=== PATIENT | male | born 1985 | race Hispanic/Latino ===

== ENCOUNTER 2021-09-26 09:57 | Inpatient (IN) | payer SELFPAY ==
[2021-09-26] MEDS ORDERED: METOPROLOL TARTRATE 5 MG/5 ML INJ IV ONE (10:04)
[2021-09-26] MEDS ORDERED: NA CHLORIDE 0.9% 500 ML ONE (10:26)
[2021-09-26] MEDS ORDERED: FENTANYL CITR 100 MCG/2 ML ONE (10:26)
[2021-09-26] MEDS ORDERED: propofoL 200 MG/20 ML VIAL IV ONE (10:26)
[2021-09-26 10:35] LABS: Absolute Lymphocytes (CBC) 1.7 K/uL (0.7-4.9); Basophils % 0.6 % (0-1.3); Hematocrit 43.1 % (39.6-49.0); Lymphocytes % 16.9 % (15.3-44.8); MPV 7.4 fL (7.6-11.3); RBC Red Blood Cell Count 4.77 M/uL (4.33-5.43)
[2021-09-26 10:39] LABS: Protime INR 1.09
[2021-09-26 10:58] LABS: ALT/SGPT 60 U/L (12-78); AST/SGOT 49 U/L (15-37); Alkaline Phosphatase 61 U/L (45-117); BUN Blood Urea Nitrogen 21 mg/dL (7-18); Bicarbonate 25 mmol/L (21-32); Bilirubin Direct 0.2 mg/dL (0-0.2); Bilirubin Total 0.7 mg/dL (0.2-1.0); Glucose Level 144 mg/dL (74-106); Magnesium 2.1 mg/dL (1.8-2.4); NT PRO-BNP 2738 pg/mL (<125); Potassium 3.7 mmol/L (3.5-5.1); Protein, Total 6.4 g/dL (6.4-8.2); Sodium Level 140 mmol/L (136-145); Troponin (Emerg Dept Use Only) < 0.02 ng/mL (0.0-0.045)
--- NOTE | 2021-09-26 11:11 | RAD REPORT ---
EXAM DESCRIPTION: RAD - Chest Single View - 09/26/2021 10:59 am CLINICAL HISTORY: CHEST PAIN COMPARISON: None TECHNIQUE: AP portable chest image was obtained 09/26/2021 10:59 am . FINDINGS: No acute lung parenchymal finding. Interstitial pattern is accentuated by body habitus aff ects, portable technique and shallow inspiration. Exam limitations also magnified heart size. Resusci tation paddle overlies the right-side of the chest. No measurable pleural effusion and no pneumothora x. No acute bony abnormality seen. No acute aortic findings suspected. IMPRESSION: Limited portable study without focal mass or consolidation. Heart, vasculature and lung markings are accentuated by exam limitations. Mild edema or interstitial infiltrate could be masked.
--- NOTE | 2021-09-26 12:00 | ER ---
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 Coronavirus screen: At this time, the client does not indicate any symptoms associated with coronavirus-19. Ebola Screen: No symptoms or risks identified at this time. Initial Sepsis Screen: Does the patient meet any 2 criteria? No. Patient's initial sepsis screen is negative. Does the patient have a suspected source of infection? No. Patient's initial sepsis screen is negative. Risk Assessment: Do you want to hurt yourself or someone else? Patient reports no desire to harm self or others. Onset of symptoms was September 26, 2021 at 09:00. Care prior to arrival: IV initiated. 20 GA, in the left antecubital area, Glucose check: 147. 10:04 Method Of Arrival: EMS: [facility] bp 10:04 Acuity: BRITTNEY 2 bp Triage Assessment: 10:04 General: Appears distressed, uncomfortable, obese, Behavior is cooperative, appropriate bp for age, anxious. Pain: Denies pain. EENT: No deficits noted. Neuro: Level of Consciousness is awake, alert, obeys commands, Oriented to Appropriate for age. Cardiovascular: Rhythm is atrial fibrillation with rapid ventricular response. Respiratory: No deficits noted. GI: No signs and/or symptoms were reported involving the gastrointestinal system. : No signs and/or symptoms were reported regarding the genitourinary system. Derm: Skin is diaphoretic. Musculoskeletal: No deficits noted. Historical: - Allergies: 10:04 No Known Allergies; bp - Home Meds: 10:04 None [Active]; bp - PMHx: 10:04 Hypertensive disorder; bp - Immunization history:: Adult Immunizations up to date. - Social history:: Smoking status: Patient denies any tobacco usage or history of. Screenin:05 Abuse screen: Denies threats or abuse. Denies injuries from another. Nutritional bp screening: No deficits noted. Tuberculosis screening: No symptoms or risk factors identified. Fall Risk None identified. Assessment: 10:05 General: SEE TRIAGE NOTE. bp 10:30 Reassessment: PT AGREED TO EMERGENCY CARDIOVERSION. PT PLACED ON 100%NRB, NIBP, SPO2 bp AND EKG MONITORING. PT GIVEN 100MG PROPOFOL AND 100MCG FENTANYL. SYNCHRONIZED CARDIOVERSION x2. 11:00 Reassessment: PT RETURNED TO BASELINE. REMAINS SR ON MONITOR. bp 12:03 Reassessment: ADMIT INITIATED. Cardiovascular: Rhythm is sinus rhythm. Respiratory: No bp deficits noted. GI: No signs and/or symptoms were reported involving the gastrointestinal system. : No signs and/or symptoms were reported regarding the genitourinary system. EENT: No deficits noted. Derm: No deficits noted. 13:00 Reassessment: No changes from previously documented assessment. Patient and/or family bp updated on plan of care and expected duration. Pain level reassessed. ADMIT IN PROCESS. Vital Signs: 10:04 BP 123 / 75; Pulse 193; Resp 20; Temp 97.9; Pulse Ox 97% ; bp 10:10 BP 123 / 75; Pulse 172; Resp 21; Pulse Ox 98% ; bp 10:24 BP 126 / 103; Pulse 136; Resp 22 S; iw 11:00 BP 92 / 61; Pulse 94; Resp 19; Pulse Ox 100% ; bp 12:00 BP 113 / 76; Pulse 91; Resp 15; Pulse Ox 100% ; bp 13:00 BP 91 / 48; Pulse 92; Resp 26; Pulse Ox 100% ; bp 14:00 BP 131 / 95; Pulse 85; Resp 17; Pulse Ox 100% ; bp ED Course: 10:03 Patient arrived in ED. cs9 10:04 Sal Monreal, RN is Primary Nurse. bp 10:05 Arm band placed on left wrist. bp 10:05 Patient has correct armband on for positive identification. Bed in low position. Call bp light in reach. Side rails up X2. 10:05 Inserted saline lock: 20 gauge in right forearm, using aseptic technique. Blood bp collected. 10:07 Triage completed. bp 10:24 Tk Mosqueda MD is Attending Physician. kdr 10:30 Assist provider with cardioversion (synchronized) with pads, for treatment of A fib Set bp up for procedure. Performed by Tk Mosqueda MD Monitored with satellite project site monitor, pulse ox, Post procedure rhythm is sinus rhythm. 10:59 XRAY Chest (1 view) In Process Unspecified. EDMS 11:59 Jules Vazquez MD is Hospitalizing Provider. kdr Administered Medications: 10:10 Drug: Lopressor (metoprolol) 5 mg Route: IVP; Site: right forearm; bp 10:15 Drug: Lopressor (metoprolol) 5 mg Route: IVP; Site: right forearm; bp 10:20 Drug: Lopressor (metoprolol) 5 mg Route: IVP; Site: right forearm; bp 12:02 Follow up: Response: No adverse reaction bp 10:30 Drug: Propofol 100 mg Route: IVP; Site: right forearm; bp 12:02 Follow up: Response: No adverse reaction bp 10:30 Drug: fentaNYL (PF) 100 mcg Route: IVP; Site: right forearm; bp 12:02 Follow up: Response: Pain is decreased bp 11:01 CANCELLED (Other Intervention Used): Propofol 40 mg IVP once bp 12:16 Drug: Eliquis (apixaban) 5 mg Route: PO; bp 13:34 Follow up: Response: No adverse reaction bp 12:16 Drug: Metoprolol TARTRATE 50 mg Route: PO; bp 13:34 Follow up: Response: No adverse reaction bp Outcome: 11:59 Decision to Hospitalize by Provider. kdr 15:02 Patient left the ED. bp Signatures: Dispatcher [employer] EDMS Tk Mosqueda MD MD kdr Opal Mayorga RN RN iw Sal Monreal RN RN Leeanne Guthrie cs9
--- NOTE | 2021-09-26 12:00 | EDPHYS ---
Physician Documentation [facility] Name: Dov Guallpa Age: 36 yrs Sex: Male : 1985 Arrival Date: 09/26/2021 Time: 10:03 Bed 3 Private MD: ED Physician Tk Mosqueda HPI: 09/26 11:59 This 36 yrs old Male presents to ER via EMS with complaints of Syncope. kdr 11:59 The patient has experienced syncope, became unresponsive. Onset: The symptoms/episode kdr began/occurred suddenly, just prior to arrival. Duration: This was a single episode, About 10 seconds. Context: the episode(s) was witnessed, by co-worker(s), occurred at work, occurred while the patient was The patient was driving a forklift at the time. He had stopped prior to the syncope. Just prior to the episode the patient experienced He felt thirsty. Associated injury: The patient did not suffer any apparent associated injury. Associated signs and symptoms: The patient has no apparent associated signs or symptoms. Current symptoms: Currently, the patient is not experiencing any symptoms, the patient feels back to baseline, Although the patient was in A. fib RVR with a rate of 160s to 180s, he was asymptomatic. The patient has not experienced similar symptoms in the past. The patient has not experienced similar symptoms in the past. The patient has more than doubled his weight in the last 2 to 4 years. Historical: - Allergies: 10:04 No Known Allergies; bp - Home Meds: 10:04 None [Active]; bp - PMHx: 10:04 Hypertensive disorder; bp - Immunization history:: Adult Immunizations up to date. - Social history:: Smoking status: Patient denies any tobacco usage or history of. ROS: 11:59 Constitutional: Negative for fever, chills, and weight loss, Eyes: Negative for injury, kdr pain, redness, and discharge, ENT: Negative for injury, pain, and discharge, Neck: Negative for injury, pain, and swelling, Cardiovascular: Negative for chest pain, palpitations, and edema, Respiratory: Negative for shortness of breath, cough, wheezing, and pleuritic chest pain, Abdomen/GI: Negative for abdominal pain, nausea, vomiting, diarrhea, and constipation, Back: Negative for injury and pain, : Negative for injury, bleeding, discharge, and swelling, MS/Extremity: Negative for injury and deformity, Skin: Negative for injury, rash, and discoloration, Psych: Negative for depression, anxiety, suicide ideation, homicidal ideation, and hallucinations, Allergy/Immunology: Negative for hives, rash, and allergies, Endocrine: Negative for neck swelling, polydipsia, polyuria, polyphagia, and marked weight changes, Hematologic/Lymphatic: Negative for swollen nodes, abnormal bleeding, and unusual bruising. 11:59 Neuro: Positive for syncope, Negative for altered mental status, dizziness, gait disturbance, tinnitus, visual changes, weakness. Exam: 11:59 Constitutional: This is a well developed, well nourished patient who is awake, alert, kdr and in no acute distress. Head/Face: Normocephalic, atraumatic. Eyes: Pupils equal round and reactive to light, extra-ocular motions intact. Lids and lashes normal. Conjunctiva and sclera are non-icteric and not injected. Cornea within normal limits. Periorbital areas with no swelling, redness, or edema. Neck: Trachea midline, no thyromegaly or masses palpated, and no cervical lymphadenopathy. Supple, full range of motion without nuchal rigidity, or vertebral point tenderness. No Meningismus. Chest/axilla: Normal chest wall appearance and motion. Nontender with no deformity. No lesions are appreciated. Cardiovascular: Regular rate and rhythm with a normal S1 and S2. No gallops, murmurs, or rubs. Normal PMI, no JVD. No pulse deficits. Respiratory: Lungs have equal breath sounds bilaterally, clear to auscultation and percussion. No rales, rhonchi or wheezes noted. No increased work of breathing, no retractions or nasal flaring. Abdomen/GI: Soft, non-tender, with normal bowel sounds. No distension or tympany. No guarding or rebound. No evidence of tenderness throughout. Back: No spinal tenderness. No costovertebral tenderness. Full range of motion. Skin: Warm, dry with normal turgor. Normal color with no rashes, no lesions, and no evidence of cellulitis. MS/ Extremity: Pulses equal, no cyanosis. Neurovascular intact. Full, normal range of motion. Psych: Awake, alert, with orientation to person, place and time. Behavior, mood, and affect are within normal limits. 11:59 Cardiovascular: Rate: tachycardic, Rhythm: irregularly irregular, Pulses: no pulse deficits are appreciated, Heart sounds: normal, Edema: is not appreciated. Vital Signs: 10:04 BP 123 / 75; Pulse 193; Resp 20; Temp 97.9; Pulse Ox 97% ; bp 10:10 BP 123 / 75; Pulse 172; Resp 21; Pulse Ox 98% ; bp 10:24 BP 126 / 103; Pulse 136; Resp 22 S; iw 11:00 BP 92 / 61; Pulse 94; Resp 19; Pulse Ox 100% ; bp 12:00 BP 113 / 76; Pulse 91; Resp 15; Pulse Ox 100% ; bp 13:00 BP 91 / 48; Pulse 92; Resp 26; Pulse Ox 100% ; bp 14:00 BP 131 / 95; Pulse 85; Resp 17; Pulse Ox 100% ; bp MDM: 11:59 Patient medically screened. kdr 12:02 Data reviewed: vital signs, nurses notes, lab test result(s), radiologic studies. kdr Counseling: I had a detailed discussion with the patient and/or guardian regarding: the historical points, exam findings, and any diagnostic results supporting the discharge/admit diagnosis, lab results, radiology results, the need for outpatient follow up. 09/26 10:19 Order name: Basic Metabolic Panel; Complete Time: 11:55 iw 09/26 10:19 Order name: CBC with Diff; Complete Time: 11:55 iw 09/26 10:19 Order name: LFT's; Complete Time: 11:55 iw 09/26 10:19 Order name: Magnesium; Complete Time: 11:55 iw 09/26 10:19 Order name: NT PRO-BNP; Complete Time: 11:55 iw 09/26 10:19 Order name: PT-INR; Complete Time: 11:55 iw 09/26 10:19 Order name: Troponin (emerg Dept Use Only); Complete Time: 11:55 iw 09/26 12:08 Order name: SARS-COV-2 RT PCR (Document "Date of Onset" if Symptomatic) iw 09/26 12:31 Order name: Basic Metabolic Panel EDMS 09/26 12:31 Order name: Basic Metabolic Panel EDMS 09/26 12:31 Order name: CBC with Automated Diff EDMS 09/26 12:31 Order name: CBC with Automated Diff EDMS 09/26 12:31 Order name: Lipid Profile EDVA 09/26 12:31 Order name: Lipid Profile EDVA 09/26 10:19 Order name: XRAY Chest (1 view); Complete Time: 11:55 iw 09/26 10:19 Order name: EKG; Complete Time: 10:20 iw 09/26 12:31 Order name: CONS Physician Consult ED[facility] 09/26 12:31 Order name: Heart Healthy ED[facility] 09/26 12:31 Order name: Echo with Doppler [facility] 09/26 12:31 Order name: Troponin I [facility] 09/26 12:31 Order name: Troponin I [facility] 09/26 12:31 Order name: Troponin I [facility] 09/26 12:32 Order name: T4 Free [facility] 09/26 12:33 Order name: Thyroid Stimulating Hormone EDVA 09/26 10:19 Order name: Cardiac monitoring; Complete Time: 11:00 iw 09/26 10:19 Order name: EKG - Nurse/Tech; Complete Time: 11:00 iw 09/26 10:19 Order name: IV Saline Lock; Complete Time: 11:00 iw 09/26 10:19 Order name: Labs collected and sent; Complete Time: 11:00 iw 09/26 10:19 Order name: O2 Per Protocol; Complete Time: 11:00 iw 09/26 10:19 Order name: O2 Sat Monitoring; Complete Time: 10:59 iw 09/26 10:24 Order name: Labs - recollect needed: recollect all please; Complete Time: 10:59 em1 Administered Medications: 10:10 Drug: Lopressor (metoprolol) 5 mg Route: IVP; Site: right forearm; bp 10:15 Drug: Lopressor (metoprolol) 5 mg Route: IVP; Site: right forearm; bp 10:20 Drug: Lopressor (metoprolol) 5 mg Route: IVP; Site: right forearm; bp 12:02 Follow up: Response: No adverse reaction bp 10:30 Drug: Propofol 100 mg Route: IVP; Site: right forearm; bp 12:02 Follow up: Response: No adverse reaction bp 10:30 Drug: fentaNYL (PF) 100 mcg Route: IVP; Site: right forearm; bp 12:02 Follow up: Response: Pain is decreased bp 11:01 CANCELLED (Other Intervention Used): Propofol 40 mg IVP once bp 12:16 Drug: Eliquis (apixaban) 5 mg Route: PO; bp 13:34 Follow up: Response: No adverse reaction bp 12:16 Drug: Metoprolol TARTRATE 50 mg Route: PO; bp 13:34 Follow up: Response: No adverse reaction bp Disposition Summary: 09/26/21 11:59 Hospitalization Ordered Hospitalization Status: Observation kdr Provider: Jules Vazquez Location: Telemetry/MedSurg (observation) kdr Condition: Fair kdr Problem: new kdr Symptoms: have improved kdr Bed/Room Type: Standard kdr Room Assignment: 209(09/26/21 13:00) em1 Diagnosis - Unspecified atrial fibrillation - With rapid ventricular response/resolved kdr Forms: - Medication Reconciliation Form kdr - SBAR form kdr Signatures: Dispatcher [employer] EDMS Tk Mosqueda MD MD kdr Opal Mayorga RN RN iw Dany Campos em1 Sal Monreal RN RN bp Corrections: (The following items were deleted from the chart) 11:01 11:01 Propofol 40 mg IVP once ordered. bp bp 13:00 11:59 kdr em1
[2021-09-26] MEDS ORDERED: METOPROLOL TAR 50 MG TAB ONE ×2 (12:11→12:14)
[2021-09-26] MEDS ORDERED: APIXABAN 5 MG TABLET ONE ×2 (12:11→12:14)
[2021-09-26] MEDS ORDERED: ALPRAZOLAM 0.25 MG TABLET PO PRN (12:26)
[2021-09-26] MEDS ORDERED: ACETAMINOPHEN 500 MG TAB PO PRN (12:26)
[2021-09-26] MEDS ORDERED: MORPHINE 4 MG/ML SYR IV PRN (12:26)
[2021-09-26 15:12] VITALS: O2SAT 100
[2021-09-26] MEDS ORDERED: METOPROLOL TAR 50 MG TAB PO SCH (18:00)
--- NOTE | 2021-09-26 18:12 | P.HP ---
Certification for Inpatient Patient admitted to: Inpatient With expected LOS: >2 Midnights Patient will require the following post-hospital care: None Practitioner: I am a practitioner with admitting privileges, knowledge of patient current condition, hospital course, and medical plan of care. Services: Services provided to patient in accordance with Admission requirements found in Title 42 Section 412.3 of the Code of Federal Regulations Patient History Date of Service: 09/26/21 Reason for admission: New onset Atrial fibrillation s/p cardioversion Allergies No Known Allergies Allergy (Unverified 09/26/21 14:44) Home Medications: NK [No Home Meds] 09/26/21 Review of Systems 10-point ROS is otherwise unremarkable Physical Examination - Vital Signs Temperature: 97.9 F Blood Pressure: 131/95 Pulse: 85 Respirations: 17 - Physical Exam General: Alert, In no apparent distress, Oriented x3 HEENT: Atraumatic, Normocephalic Neck: Supple, 2+ carotid pulse no bruit, JVD not distended, No Thyromegaly Respiratory: Clear to auscultation bilaterally - Studies Laboratory Data (last 24 hrs) 09/26/21 10:28: PT 12.5, INR 1.09 09/26/21 10:28: WBC 10.10, Hgb 14.1, Hct 43.1, Plt Count 299 09/26/21 10:28: Sodium 140, Potassium 3.7, BUN 21 H, Creatinine 1.21, Glucose 144 H, Magnesium 2.1, Total Bilirubin 0.7, AST 49 H, ALT 60, Alkaline Phosphatase 61 Assessment & Plan - Problems (Diagnosis) (1) Atrial fibrillation with rapid ventricular response Current Visit: Yes Status: Acute (2) Morbid obesity Current Visit: Yes Status: Acute - Advance Directives Does patient have a Living Will: No Does patient have a Durable POA for Healthcare: No
[2021-09-26 18:37] VITALS: BMI 57.9
[2021-09-26] MEDS: METOPROLOL TAR 50 MG TAB PO SCH (18:56)
[2021-09-26] MEDS: APIXABAN 5 MG TABLET PO SCH (20:53)
[2021-09-27] MEDS: METOPROLOL TAR 50 MG TAB PO SCH (05:44)
[2021-09-27 06:11] LABS: Absolute Lymphocytes (CBC) 2.9 K/uL (0.7-4.9); Basophils % 1.5 % (0-1.3); Lymphocytes % 34.7 % (15.3-44.8); RBC Red Blood Cell Count 5.12 M/uL (4.33-5.43)
[2021-09-27 06:27] LABS: BUN Blood Urea Nitrogen 19 mg/dL (7-18); Bicarbonate 24 mmol/L (21-32); Glucose Level 106 mg/dL (74-106); Sodium Level 141 mmol/L (136-145); Troponin I < 0.02 ng/mL (0.0-0.045)
[2021-09-27 06:28] LABS: Potassium 4.8 mmol/L (3.5-5.1)
[2021-09-27 06:43] LABS: Thyroid Stimulating Hormone 1.74 uIU/mL (0.360-3.740)
[2021-09-27] MEDS: APIXABAN 5 MG TABLET PO SCH (08:12)
--- NOTE | 2021-09-27 10:16 | ECHO ---
HEIGHT: 5 ft 7 in WEIGHT: 370 lb 0 oz DATE OF STUDY: 09/26/[address]: Jules Vazquez MD 2-DIMENSIONAL: YES M.MODE: YES DOPPLER: YES COLOR FLOW: YES TDS: PORTABLE: DEFINITY: BUBBLE STUDY: DIAGNOSIS: CONGESTIVE HEART FAILURE CARDIAC HISTORY: CATHERIZATION: SURGERY: PROSTHETIC VALVE: PACEMAKER: MEASUREMENTS (cm) DIASTOLIC (NORMALS) SYSTOLIC (NORMALS) IVSd 1.2 (0.6-1.2) LA Diam 4.4 (1.9-4.0) LVEF 40-45% LVIDd 5.4 (3.5-5.7) LVIDs 4.9 (2.0-3.5) %FS 10% LVPWd 1.2 (0.6-1.2) Ao Diam 3.1 (2.0-3.7) 2 DIMENSIONAL ASSESSMENT: RIGHT ATRIUM: NORMAL LEFT ATRIUM: ENLARGED RIGHT VENTRICLE: DEPRESSED RIGHT VENTRICLE LEFT VENTRICLE: DEPRESSED TRICUSPID VALVE: MILD TRICUSPID REGURGITATION MITRAL VALVE: MODERATE MITRAL REGURGITATION PULMONIC VALVE: NORMAL AORTIC VALVE: NORAML PERICARDIAL EFFUSION: NONE AORTIC ROOT: NORMAL LEFT VENTRICULAR WALL MOTION: MILD GLOBAL HYPOKINESIS DOPPLER/COLOR FLOW: SEE BELOW COMMENTS: MILDLY DEPRESSED LEFT VENTRICULAR EJECTION FRACTION 40-45 %. MODERATE MITRAL REGURGITATION. MILDLY DEPRESSED RIGHT VENTRICULAR REACTION. TECHNOLOGIST: ORTEGA PACK
[2021-09-27 12:42] VITALS: BP 133/79; TEMP 97.6
--- NOTE | 2021-09-28 12:41 | EKG ---
Test Date: 2021-09-26 Test Time: 10:41:45 Cycle Liaison: TP MEASUREMENT RESULTS: Intervals: Rate: 84 VA: 172 QRSD: 110 QT: 396 QTc: 467 Hixson: P: 55 VA: 172 QRS: 140 T: 103 INTERPRETIVE STATEMENTS: Normal sinus rhythm Left posterior fascicular block T wave abnormality, consider anterior ischemia Abnormal ECG Compared to ECG 09/26/2021 09:57:14 Left posterior fascicular block now present T-wave abnormality now present Possible ischemia now present Atrial fibrillation no longer present Ventricular premature complex(es) no longer present Right-axis deviation no longer present Incomplete right bundle-branch block no longer present Right ventricular hypertrophy no longer present Electronically Signed On 09-28-21 12:36:05 CUPBOARD BUILDER by Eliezer Armijo
--- NOTE | 2021-09-28 12:42 | EKG ---
Test Date: 2021-09-26 Test Time: 09:57:14 [place] Operator: BEAN MEASUREMENT RESULTS: Intervals: Rate: 175 DE: QRSD: 104 QT: 296 QTc: 505 Mcgehee: P: DE: QRS: 157 T: 39 INTERPRETIVE STATEMENTS: Atrial fibrillation with rapid ventricular response with premature ventricular or aberrantly conducted complexes Right axis deviation Incomplete right bundle branch block Right ventricular hypertrophy Abnormal ECG No previous ECG available for comparison Electronically Signed On 09-28-21 12:36:07 RV SERVICER by Eliezer Armijo
--- NOTE | 2021-09-30 19:36 | CON ---
Date of Consultation: 09/27/2021 Reason For Consultation: New onset atrial fibrillation. History Of Present Illness: Mr. Ramu Kate, history of hypertension. I felt that he was dehydrated a nd almost passed out, was noted in the emergency room to have a new onset atrial fibrillation. He is in sinus rhythm now after beta blockers. He is also on Lovenox. Echocardiogram is pending. Denied chest pain, nausea, vomiting, diaphoresis, PND, orthopnea, or pedal edema. Denied any fever or chil ls. Denied any chest pain. Past Medical History: Positive for hypertension. Allergies: NONE. Review of Systems: Negative. Social History: Negative. Family History: Noncontributory. Medications: At home include lisinopril. Physical Examination: General: He was in sinus rhythm. No acute distress. Vital Signs: Stable. Afebrile. HEENT: Negative. Neck: Supple with no bruit. Chest: Clear. Cardiac Exam: Revealed a regular rhythm and rate. No murmurs, gallops, or rubs. Abdomen: Benign. Extremities: Revealed no clubbing, cyanosis, or edema. Diagnostic Data: Normal except for atrial fibrillation. Impression And Plan: Paroxysmal atrial fibrillation. First episode resolved on beta-blockers. I th ink patient should go home on beta-blockers and anticoagulant and will arrange for an outpatient echo cardiogram before making further decisions. He will eventually need a stress test and an outpatient followup in the next week or 2. MARCY/TAINA Voice ID: [id number] Report ID: [id number]
== END 2021-09-27 12:55 | disposition home or self-care (01) | DRG 309 ==
LOC: ER 09:57 → 2ND 12:27 → OBSVTOIN 21:45
PROVIDERS: ADMIT Hospitalist; ATTEND Hospitalist
DX: I48.0 Paroxysmal atrial fibrillation (principal); Z68.43 Body mass index [BMI] 50.0-59.9, adult; E66.01 Morbid (severe) obesity due to excess calories; E86.0 Dehydration; Z20.822 Contact with and (suspected) exposure to COVID-19
CPT/HCPCS: 36415; 71045; 80048; 80061; 80076; 83735; 83880; 84439; 84443; 84484; 85025; 85610; 92960; 93005; 93306; 96374; 96375; 99291; 99292; G0378; J2704; J3010; J7040; U0003